=== PATIENT | male | born 1945 | race Caucasian/White ===

== ENCOUNTER 2017-12-08 08:15 | Outpatient (CLI) | payer MEDICARE ==
[2017-12-08 10:33] LABS: #Eosinphils 0.1 thou/uL (0.0-0.7); #Monocytes 0.3 thou/uL (0.11-0.59); %Basophils 0.8 % (0.0-1.0); %Eosinophils 3.2 % (0.0-10.0); %Lymphocytes 30.2 % (21.0-51.0); %Monocytes 7.4 % (0.0-10.0); %Neutrophils 58.4 % (42.0-75.0); Hemoglobin 14.7 g/dL (14.0-18.0); Mean Corpuscular HGB CONC 34.2 g/dL (32.0-36.0); Mean Corpuscular Hemoglobin 32.1 pg (27.0-31.0); Mean Corpuscular Volume 93.8 fl (80.0-94.0); Mean Platelet Volume 6.4 fL (7.4-10.4); Platelet Count 170 thou/uL (130-400); RBC Distribution Width 12.5 % (11.5-14.5); Red Blood Cell (RBC) Count 4.59 mill/uL (4.70-6.10); White Blood Cell (WBC) Count 3.5 thou/uL (4.8-10.8)
[2017-12-08 10:55] LABS: Anion Gap 12 mmol/L (10-20); BUN (Urea Nitrogen) 14 mg/dL (8.4-25.7); Calc. Creatinine Clearance 0 mL/min (70-130); Calcium 9.2 mg/dL (7.8-10.44); Carbon Dioxide 25 mmol/L (23-31); Chloride 107 mmol/L (98-107); Estimated GFR-MDRD 86; Glucose 93 mg/dL (80-115); Potassium 3.9 mmol/L (3.5-5.1); Sodium 140 mmol/L (136-145)
--- NOTE | 2017-12-08 22:08 | EKG ---
Test Reason : Blood Pressure : / mmHG Vent. Rate : 057 BPM Atrial Rate : 057 BPM P-R Int : 168 ms QRS Dur : 104 ms QT Int : 450 ms P-R-T Axes : 044 017 024 degrees QTc Int : 438 ms Sinus bradycardia Otherwise normal ECG When compared with ECG of 21-MAY-2017 15:54, No significant change was found Confirmed by CHRISTINE GOOD M.D. ([id number]) on 12/08/2017 10:08:38 PM Referred By: DAVE Confirmed By:CHRISTINE GOOD M.D.
== END 2017-12-08 08:16 | disposition home or self-care (01) ==
LOC: LABBT 08:15
PROVIDERS: ATTEND Orthopaedic Surgery
DX: Z01.818 Encounter for other preprocedural examination (principal); M75.102 Unspecified rotator cuff tear or rupture of left shoulder, not specified as traumatic; R00.1 Bradycardia, unspecified
CPT/HCPCS: 80048; 85025; 93005; 93010

== ENCOUNTER 2017-12-10 05:45 | Day surgery (SDC) | payer MEDICARE ==
[2017-12-08 08:48] VITALS: BMI 28.5
[2017-12-10] MEDS ORDERED: Lidocaine 1% (PF) 30 ML VIAL ONE (06:43)
[2017-12-10] MEDS ORDERED: Fentanyl 100 MCG/2 ML VIAL ONE (06:43)
[2017-12-10] MEDS ORDERED: Midazolam HCl 2 mg/2 ml Vial ONE (06:43)
[2017-12-10] MEDS ORDERED: Bupivacaine/Epinephrine 0.25% 30 ML VIAL ONE (06:51)
[2017-12-10] MEDS ORDERED: CEFAZOLIN/Water 2 GM/20 ML SYRINGE ONE (07:00)
[2017-12-10] MEDS ORDERED: Ondansetron HCl/PF 4 MG/2 ML Vial IVP PRN (07:32)
[2017-12-10] MEDS ORDERED: traMADol HCl 50 MG TAB PO PRN ×2 (07:32)
[2017-12-10] MEDS ORDERED: Zolpidem Tartrate 5 MG TAB PO PRN (07:32)
[2017-12-10] MEDS ORDERED: Promethazine HCl 25 MG/ML VIAL IM PRN (07:32)
[2017-12-10] MEDS ORDERED: HYDROcodone/Acetaminophen 5/325 mg Tablet PO PRN ×2 (07:32)
[2017-12-10] MEDS ORDERED: Ropivacaine 0.2% 550 ML 550 ML NERVE BLCK SCH (07:32)
[2017-12-10] MEDS ORDERED: Ketorolac Tromethamine 30 MG/ML VIAL IVP PRN (07:32)
[2017-12-10] MEDS ORDERED: Fentanyl 100 MCG/2 ML VIAL IV PRN (07:33)
--- NOTE | 2017-12-10 11:05 | OP ---
DATE OF PROCEDURE: 12/10/2017 PREOPERATIVE DIAGNOSIS: Left shoulder biceps tendon tear and subluxation. POSTOPERATIVE DIAGNOSES: 1. Left shoulder biceps tendon tear and subluxation. 2. Rotator cuff tear of the supraspinatus. 3. Significant synovitis of glenohumeral joint. PROCEDURES PERFORMED: 1. Left shoulder arthroscopy with debridement and shaving of synovitis. 2. Left shoulder subacromial decompression. 3. Left shoulder arthroscopic rotator cuff repair. 4. Left shoulder open biceps tenodesis. SURGEON: Kings Dubose M.D. BATCH BLENDER: Evangelista Parisi PA-C. BLOOD LOSS: Approximately 30-40 mL. COMPLICATIONS: None. IMPLANTS: We used one double loaded titanium rotator cuff anchor and we used one 8 x 23 [employer] Bio-Tenodesis screw. Both of these are [employer] products. He went to the recovery room in stable co ndition. ANESTHESIA: He did have general anesthetic as well as preoperative block. INDICATIONS: A 72-year-old male who has had problems with this left shoulder for greater than a year and at this time opted to have surgery. DESCRIPTION OF PROCEDURE: After all appropriate consent forms were explained and signed, he was take n to the operating room and at this time was given general anesthetic. Once the level of anesthesia was appropriate, he was rolled into the right lateral decubitus position with all bony prominences we ll-padded. Axillary roll was placed underneath the right axilla and the gregory bag was inflated to hol d him in this position. The arm was then taken through full range of motion and then suspended 15 po unds in standard arthroscopic fashion. On bony anatomic limb, at this time, the left shoulder and up per extremity are prepped and draped in the standard surgical fashion. Bony anatomic landmarks were drawn out and subacromial space was infiltrated with Marcaine with epinephrine. Posterior portal was established and the scope was placed into the shoulder joint. Anterior working portal was made usin g a needle localization technique. At this time, we essentially had minimal visualization of the bret nt secondary to the significant synovitis as well as the fraying of the labrum, biceps and rotator cu ff. Once the shaver was introduced and this copious tissue was removed without much better visualiza tion. The surface energy probe was introduced to coagulate all brisk venous bleedings and at this ti me were able to evaluate the shoulder. Humeral head had good cartilage. The glenoid had some global grade 2 cartilage. The labrum was degenerative circumferentially. The biceps tendon had significan t intratendinous tearing nearly all the way through the tendon itself, it was huge and fat and was dinero bluxated anteriorly. Top portion of the subscapularis was torn as well as a tear of the supraspinatu s from its leading edge posteriorly. At this time, a stitch was placed through the biceps using an 1 8 gauge needle. The biceps was then removed off of the superior labrum with the surface energy and w e then repositioned the scope into the subacromial space. Lateral working portal was made and at thi s time, the bursa was removed from off the underlying rotator cuff. Soft tissue decompression was pe rformed off of the acromion. All brisk venous bleeding was coagulated and we were able to evaluate t he tendon. There was a small full thickness tear of the supraspinatus. The edges of the tendon were cleaned up with the shaver. Soft tissue was removed off of the bony insertion. A passport cannula was placed laterally and through this a double-loaded titanium anchor was placed into the greater tub erosity. We then passed the sutures through the tendon using the scorpion device in mattress fashion . These were then tied. Secondary to the small nature of the tear, a double row was not felt to be needed. At this time, we then removed the scope and drained the shoulder. We then used a 15 blade t o make an incision right where our needle had been made to place a suture through the biceps tendon a nd a cut was made down through skin only. The Bovie was used to coagulate any brisk venous bleeding. Deltoid fascia was opened up sharply and finger dissection was used to split the deltoid in line wi th its fibers to get down to the underlying transverse humeral ligament. Biceps tendon was found ant erior to the bicipital groove pulled out into the wound. We then released all bands of tissue openin g up the transverse humeral ligament and the Bovie was used to coagulate any brisk venous bleeding. We then sewed the tendon and removed all the intraarticular portion of this. We measured this to be 8. We then placed our pin, drilled with an 8.5 mm reamer to a depth of 25 and placed our 8 x 23 comp osite Bio-Tenodesis screw. Sutures were tied over top of this. We then cut these. We allowed the d eltoid to fall upon itself. We thoroughly irrigated and dried wounds. We then ran a Vicryl to close our deltoid fascia, 2-0 Vicryl and nylon sutures to close the skin. All portals were closed with si mple nylon stitch. Bulky sterile dressing was applied. The patient was awakened and taken to the re covery room in stable condition. All counts were correct at the end of the case and he received preo perative IV antibiotics.
[2017-12-10] MEDS ORDERED: Ropivacaine 0.5% HCl/PF (150 MG/30 ML VIAL) ONE (12:11)
[2017-12-10] MEDS ORDERED: Ropivacaine 0.2% HCl/PF (40 MG/20 ML VIAL) ONE (12:11)
[2017-12-10] MEDS ORDERED: PROPOFOL 200 MG/20 ML VIAL ONE (13:30)
[2017-12-10] MEDS ORDERED: Lidocaine 1% PF 5 ML VIAL ONE (13:30)
[2017-12-10] MEDS ORDERED: ePHEDrine/0.9% NaCl/PF SYRINGE 50 mg/10 ml ONE (13:30)
== END 2017-12-10 12:50 | disposition home or self-care (01) ==
LOC: SDC 05:45
PROVIDERS: ATTEND Orthopaedic Surgery
PROC: 0RNK4ZZ Release Left Shoulder Joint, Percutaneous Endoscopic Approach (ICD-10-PCS; principal; 2017-12-10)
PROC: 0LQ24ZZ Repair Left Shoulder Tendon, Percutaneous Endoscopic Approach (ICD-10-PCS; 2017-12-10)
PROC: 0RBK4ZZ Excision of Left Shoulder Joint, Percutaneous Endoscopic Approach (ICD-10-PCS; 2017-12-10)
PROC: 0LS40ZZ Reposition Left Upper Arm Tendon, Open Approach (ICD-10-PCS; 2017-12-10)
PROC: 0RHK04Z Insertion of Internal Fixation Device into Left Shoulder Joint, Open Approach (ICD-10-PCS; 2017-12-10)
DX: S43.002A Unspecified subluxation of left shoulder joint, initial encounter (principal); M75.122 Complete rotator cuff tear or rupture of left shoulder, not specified as traumatic; M65.812 Other synovitis and tenosynovitis, left shoulder; I48.91 Unspecified atrial fibrillation; I10 Essential (primary) hypertension; E78.5 Hyperlipidemia, unspecified; M54.9 Dorsalgia, unspecified; G89.29 Other chronic pain; Z79.82 Long term (current) use of aspirin; Z79.899 Other long term (current) drug therapy; Z98.890 Other specified postprocedural states
CPT/HCPCS: 23430; 29820; 29826; 29827; A4306; C1713; J2001; J2250; J2704; J2795; J3010

== ENCOUNTER 2019-01-12 08:22 | Outpatient (CLI) | payer MEDICARE | END 2019-01-12 08:23 | disposition home or self-care (01) | LOC: CTENTCT 08:22 | PROVIDERS: ATTEND Specialist | DX: J32.9 Chronic sinusitis, unspecified (principal) | CPT/HCPCS: 70486 ==